=== PATIENT | female | born 1985 | race Hispanic/Latino ===

== ENCOUNTER 2019-09-29 11:16 | Emergency (ER) | payer BC ==
[~2019-09-29 11:16] MED LIST: AUGMENTIN875TAB PO; BIRTH CONTROL; CONCEPT DHA PO; FLEXERIL PO; FLONASE NASAL50 MCG; NAPROSYN500 MG PO; ONDANSETRON4 MG PO; PREDNISONE10 MG PO; QC IBUPROFEN200 M1 PO; SPRINTEC 2828 DAY PO; ULTRAM50 M1 PO
[2019-09-29 12:45] VITALS: BP 152/68
== END 2019-09-29 12:45 | disposition home or self-care (01) | DRG 563 ==
LOC: ED 11:16
PROC: 2W3VXYZ Immobilization of Left Toe using Other Device (ICD-10-PCS; principal; 2019-09-29)
DX: S92.352A Displaced fracture of fifth metatarsal bone, left foot, initial encounter for closed fracture (principal); X50.0XXA Overexertion from strenuous movement or load, initial encounter; Y93.11 Activity, swimming; Y92.008 Other place in unspecified non-institutional (private) residence as the place of occurrence of the external cause

== ENCOUNTER 2022-08-28 09:05 | Emergency (ER) | payer BC ==
[~2022-08-28] VITALS: Ht 154.9 cm; Wt 102.0 kg
[2022-08-28 09:17] VITALS: BP 138/79
[2022-08-28 09:30] VITALS: BP 125/77
[2022-08-28 10:00] VITALS: BP 125/78
[2022-08-28] MEDS ORDERED: AMOX/K CLAV875 M1 PO (10:28)
[2022-08-28 10:31] VITALS: BP 127/63
[2022-08-28 10:38] VITALS: BP 127/63
== END 2022-08-28 10:48 | disposition home or self-care (01) | DRG 153 ==
LOC: ED 09:05
DX: J02.0 Streptococcal pharyngitis (principal); Z20.822 Contact with and (suspected) exposure to COVID-19